=== PATIENT | male | born 1980 | race Caucasian/White ===

== ENCOUNTER 2018-04-04 12:29 | Emergency (ER) | payer OTHER ==
[2018-04-04 12:41] VITALS: BP 145/96
[2018-04-04] MEDS ORDERED: Metoclopramide 10 MG/2 ML SDV IVPUSH ONE (12:53)
[2018-04-04] MEDS ORDERED: HYDROmorphone 1 MG/ML Syringe IVPUSH ONE (12:53)
[2018-04-04] MEDS ORDERED: Bupivacaine 0.5% 10 ML SDV INJECT ONE (12:54)
[2018-04-04] MEDS ORDERED: ceFAZolin 2 GM in Premix Bag 1 BAG IV ONE (12:55)
[2018-04-04] MEDS ORDERED: Diphtheria,Pertussis(Acell),Tetanus Vaccine 0.5 ML SDV IM ONE (12:57)
--- NOTE | 2018-04-04 12:59 | EDM.PDOC ---
ED HPI GENERAL MEDICAL PROBLEM - General Chief Complaint: Upper Extremity Injury/Pain Stated Complaint: HAND INJURY Time Seen by Provider: 04/04/18 12:53 Source of Information: Reports: Patient History Limitations: Reports: No Limitations - History of Present Illness INITIAL COMMENTS - FREE TEXT/NARRATIVE: 37-year-old male presents to the ED for evaluation of injuries to his right hand. 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 Of note he is right-hand dominant. He states a piece of eye drops partially 25 feet and crushed his right distal fingertips particularly involving the third and fourth fingers. Patient is working [place] [facility] at this time. He attended the Patient on [facility] and was sent to the ED by Dr. Couch. Clinically he appears to have open fractures of the distal phalanges of the right third and fourth fingers. He is not sure when his last tetanus toxoid was updated. He denies any other injuries. He has currently 9 out of 10. Onset: Today Onset Date: 04/04/18 Onset Time: 10:30 Duration: Hour(s): Location: Reports: Upper Extremity, Right Quality: Reports: Ache (Right hand involving the distal aspects of the right third and fourth fingers.), Throbbing Severity: Severe Improves with: Reports: None Worsens with: Reports: Other, Movement Context: Reports: Trauma (Crush type injury from a piece of pipe falling on his hand.). 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 Pain Score (Numeric/FACES): 7 - Related Data Allergies Allergy/AdvReac Type Severity Reaction Status Date / Time codeine Allergy Hives Verified 04/04/18 12:41 Home Meds: Home Meds Anti-Inflammatory 1 tab PO BID 04/04/18 [History] Doxycycline [Vibramycin] 100 mg PO BID #24 cap 04/04/18 [Rx] Hydrocodone/Acetaminophen [Vicodin Es 7.5-300 mg Tablet] 1 - 2 each PO Q4H #24 tablet 04/04/18 [Rx] Past Medical History - Past Health History Medical/Surgical History: Denies Medical/Surgical History Musculoskeletal History: Reports: Back Pain, Chronic, Osteoarthritis - Past Surgical History Musculoskeletal Surgical History: Reports: Other (See Below) Other Musculoskeletal Surgeries/Procedures:: MCL/PCL repair Social & Family History - Family History Family Medical History: Noncontributory - Tobacco Use Smoking Status *Q: Current Every Day Smoker Years of Tobacco use: 20 Packs/Tins Daily: 1 - Caffeine Use Caffeine Use: Reports: Coffee, Energy Drinks - Recreational Drug Use Recreational Drug Use: No - Living Situation & Occupation Occupation: Employed Review of Systems - Review of Systems Review Of Systems: See Below Constitutional: Reports: No Symptoms Eyes: Reports: No Symptoms Ears: Reports: No Symptoms Nose: Reports: No Symptoms Mouth/Throat: Reports: No Symptoms Respiratory: Reports: No Symptoms Cardiovascular: Reports: No Symptoms GI/Abdominal: Reports: No Symptoms Genitourinary: Reports: No Symptoms Musculoskeletal: Reports: Back Pain Skin: Reports: No Symptoms Neurological: Reports: No Symptoms Psychiatric: Reports: No Symptoms ED EXAM, GENERAL - Physical Exam Exam: See Below Exam Limited By: No Limitations General Appearance: Alert, WD/WN, Moderate Distress (In obvious pain and discomfort.) Head: Atraumatic, Normocephalic Neck: Normal Inspection, Supple, Non-Tender, Full Range of Motion. No: Lymphadenopathy (L), Lymphadenopathy (R) Respiratory/Chest: No Respiratory Distress, Lungs Clear, Normal Breath Sounds, No Accessory Muscle Use Cardiovascular: Normal Peripheral Pulses, Regular Rate, Rhythm, No Edema, No Gallop, No Murmur, No Rub GI/Abdominal: Normal Bowel Sounds, Soft, Non-Tender, No Organomegaly, No Abnormal Bruit, No Mass, Pelvis Stable Extremities: Other (Examination of his left upper extremity reveals no abnormalities. Examination of the right hand shows obvious deformities to the distal phalanges of the right third and fourth fingers. It appears that the fingernails have been avulsed from the nailbed at their bases with likely fractures of the distal phalanges. He is unable to move the fingers at the DIP joints.) Neurological: Alert ( The second and fifth fingers and thumb appear to be unaffected.), Oriented, CN II-XII Intact, Normal Cognition Psychiatric: Normal Affect, Normal Mood Skin Exam: Warm, Dry, Intact, Normal Color, No Rash ED TRAUMA EXTREMITY PROCEDURES - Laceration/Wound Repair Right Distal Digit - 3rd (Middle) Lac/Wound Length In cm: 2.5 (Stellate laceration that crackles across the dorsal aspect of the third finger to the volar aspect on radial aspect of the finger. Fingernail avulsed from the nail matrix.) Appearance: Subcutaneous, Stellate Distal NVT: Other (Comminuted fracture distal phalanx with complete avulsion of the fingernail from the nailbed.) Local Anesthesia - Bupivicaine (Marcaine): 0.5% Plain (Digital block) Local Anesthetic Volume: 5cc Skin Prep: Saline Exploration/Debridement/Repair: Minimal Debridement, No Foreign Material Found, Wound Margins Revised, Multiple Flaps Aligned Closed With: Sutures Suture Size: 3-0 # of Sutures: 7 Suture Type: Nylon, Interrupted, Running, Other (3 Vicryl 4 sutures placed also through the nailbed to approximate the fracture.) Course - Vital Signs Last Recorded V/S: Last Vital Signs Temp 36.6 C 04/04/18 12:32 Pulse 84 04/04/18 12:32 Resp 18 04/04/18 12:32 BP 145/96 H 04/04/18 12:32 Pulse Ox 99 04/04/18 12:32 - Orders/Labs/Meds Orders: Active Orders 24 hr Category Date Time Status Vaccines to be Administered [RC] PER UNIT ROUTINE Care 04/04/18 12:57 Active Hand Comp Min 3V Rt [CR] Stat Exams 04/04/18 12:54 Taken Meds: Medications Discontinued Medications Generic Name Dose Route Start Last Admin Trade Name Nita PRN Reason Stop Dose Admin Bupivacaine HCl 20 ml 04/04/18 12:54 04/04/18 13:24 Sensorcaine-Mpf 0.5% INJECT 04/04/18 12:55 20 ml ONETIME ONE Administration Diphtheria/Tetanus/Acell Pertussis 0.5 ml 04/04/18 12:57 04/04/18 13:27 Adacel IM 04/04/18 12:58 0.5 ml .ONCE ONE Administration Hydromorphone HCl 1 mg 04/04/18 12:53 04/04/18 13:18 Dilaudid IVPUSH 04/04/18 12:54 1 mg ONETIME ONE Administration Sodium Chloride 1,000 mls @ 125 mls/hr 04/04/18 13:00 04/04/18 13:18 Normal Saline IV 125 mls/hr ASDIRECTED GABRIELLA Administration Cefazolin Sodium/Dextrose 2 gm 50 mls @ 100 mls/hr 04/04/18 12:55 08/29/18 13 :26 / Premix IV 04/04/18 13:24 100 mls/hr ONETIME ONE Administration Metoclopramide HCl 10 mg 04/04/18 12:53 04/04/18 13:24 Reglan IVPUSH 04/04/18 12:54 10 mg ONETIME ONE Administration - Radiology Interpretation Free Text/Narrative:: 37-year-old male presents to the ED with acute injuries to his right hand involving the distal aspects of his third and fourth fingers from a oil rig accident. Type injury to the fingers occurred when a piece of pipe fell from above his head crushing his fingertips. Clinically has open fractures of the distal for allergies of these fingers. The fingernails appear to have been avulsed completely from the nailbed. Tetanus toxoid diphtheria and pertussis will be updated. A digital block will be performed on these fingers using Marcaine 0.5% to provide pain relief. IV will be normal saline at 150 mils per hour. Given Dilaudid 1 mg IV with Reglan 10 mg IV for acute pain relief. So Ancef 2 g IV will be given for suspect open fractures. X-rays of the fingers will be obtained once central block is been performed. - Re-Assessments/Exams Free Text/Narrative Re-Assessment/Exam: 04/04/18 13:32 Digital block performed on his right third and fourth fingers using 0.5% Marcaine. A total of 10 mL was utilized. X-rays reveal often fractures of the distal allergies of the right third and finger which was evident clinically as well. Case will be discussed with on-call orthopedic surgeon Dr. Clemente. 04/04/18 15:40 Dr. Clemente had seen the patient in consultation in the ED and recommended that I perform the repair under digital block which is already been performed. Plan is to just realign the the nailbeds to restructure the bones into approximate position and close up the lacerations which are both ulnar and radial on the third finger and mostly on the ulnar aspect of the fourth finger. This was done under digital block. I also opened up a large blood blister or hematoma on the volar surface of the fourth finger with an 18-gauge needle. Patient will be placed on Vicodin tablets which she's tolerated in the past as Percocet caused him to have numerous side effects. Doxycycline will be placed twice daily for the next 12 days to prevent secondary wound infection. He will be off work for a minimum of 2 weeks before he can return to alternative work duties where he would not have to use his right hand. Unfortunately type of work a does demands use of both hands. He is to be sorted out through occupational health and Dr. Couch who will follow him along in this regard. I will have him follow-up with Dr. Clemente orthopedic surgeon whom he has familiar with in regards to fracture management and make sure that the fractured fingers heal. Initial visit should be in 5 days' time. Departure - Departure Time of Disposition: 15:44 Disposition: Home, Self-Care 01 Condition: Fair Clinical Impression: Finger fracture, right Qualifiers: Encounter type: initial encounter Finger: middle finger Fracture type: open Phalanx: distal Fracture alignment: displaced Qualified Code(s): S62.632B - Displaced fracture of distal phalanx of right middle finger, initial encounter for open fracture Fracture, finger, distal phalanx Qualifiers: Encounter type: initial encounter Finger: ring finger Fracture type: closed Fracture alignment: nondisplaced Laterality: right Qualified Code(s): S62.664A - Nondisplaced fracture of distal phalanx of right ring finger, initial encounter for closed fracture - Discharge Information *PRESCRIPTION DRUG MONITORING PROGRAM REVIEWED*: Not Applicable *COPY OF PRESCRIPTION DRUG MONITORING REPORT IN PATIENT MAYRA: Not Applicable Prescriptions: Doxycycline [Vibramycin] 100 mg PO BID #24 cap Hydrocodone/Acetaminophen [Vicodin Es 7.5-300 mg Tablet] 1 - 2 each PO Q4H #24 tablet Referrals: PCP,Unknown [Primary Care Provider] - Forms: ED Department Discharge, ED Return to Work/School Form Additional Instructions: Evaluation in the emergency him today in regards to blunt force trauma or crush type injuries to the distal aspects of your right fourth and third fingers. This occurred in the workplace this morning at 1030 hrs. X-rays reveal comminuted fractures of the third distal phalanx and a simple fracture of the distal phalanx on the fourth finger. Associated avulsion of the fingernail on the right third finger from the nail matrix. 10 sutures are placed in the dorsal aspect of the right third finger to reapproximate the nail and the underlying fractures. 4 sutures are placed on the dorsal ulnar aspect of your fourth finger to provide wound closure. Initial dressings are to remain in place for the next 3 days. After this the dressings can be removed and then the wounds either soaked in warm water with a bit of Dove soap or gently washed in the shower a few been tolerated. Then topical antibiotic such as bacitracin or Polysporin is to be applied to all wounds and then redressed with bandages as we discussed. Then splints need to be placed to maintain position of the fractured fragments and splints taped in place. Just initial follow-up with Dr. Clemente--orthopedic surgeon in 5 days time. Please call [phone] to arrange follow- up appointment. Subsequent follow-up should be done with Dr. Couch at the occupational health clinic middle of next week as well and he can follow you along and determine through your workplace when you might be able to return to work or if there are alternative work duties available to you. Treatment at home is to elevate her hand ideally at heart level for the next 3-5 days to prevent extra swelling and reduce pain. Doxycycline 100 mg tablet twice daily for the next 12 days to prevent secondary wound infection. Vicodin tablets one or 2 every 4-6 hours as needed for pain relief for the next 3-5 days and then we 'll try and switch to Motrin 600 mg every 6 hours as needed. - My Orders Last 24 Hours: My Active Orders 04/04/18 12:54 Hand Comp Min 3V Rt [CR] Stat 04/04/18 12:57 Vaccines to be Administered [RC] PER UNIT ROUTINE - Assessment/Plan Last 24 Hours: My Active Orders 04/04/18 12:54 Hand Comp Min 3V Rt [CR] Stat 04/04/18 12:57 Vaccines to be Administered [RC] PER UNIT ROUTINE ED LACERATION PROCEDURES - Laceration/Wound Repair Right Distal Digit - 3rd (Middle) Lac/wound length in cm: 1.5 Appearance: Stellate (Left distal fourth finger), Clean Local Anesthesia - Bupivicaine (Marcaine): 0.5% Plain Local Anesthetic Volume: 5cc Skin Prep: Saline Exploration/Debridement/Repair: Wound Explored, Minimal Debridement Closed with: Sutures Suture Size: 4-0 # of Sutures: 4 Suture Type: Nylon, Interrupted, Simple
[2018-04-04] MEDS ORDERED: Sodium Chloride 0.9% 1,000 ML IV SCH (13:00)
== END 2018-04-04 16:09 | disposition home or self-care (01) ==
LOC: JD.ED 12:29
DX: S62.632B Displaced fracture of distal phalanx of right middle finger, initial encounter for open fracture (principal); S62.664A Nondisplaced fracture of distal phalanx of right ring finger, initial encounter for closed fracture; Z23 Encounter for immunization; W20.8XXA Other cause of strike by thrown, projected or falling object, initial encounter; Z88.5 Allergy status to narcotic agent; F17.210 Nicotine dependence, cigarettes, uncomplicated
CPT/HCPCS: 10140; 11760; 73130; 90471; 90715; 96361; 96365; 96375; 99284; J0690; J1170; J2765; J3490; J7040; 12001

== ENCOUNTER 2018-12-19 03:35 | Emergency (ER) | payer OTHER ==
[2018-12-19] MEDS ORDERED: Acetaminophen/HYDROcodone 325-5 MG Tab PO ONE (04:02)
[2018-12-19] MEDS ORDERED: methylPREDNISolone Sodium Succinate 125 MG/2 ML SDV IM ONE (04:02)
--- NOTE | 2018-12-19 04:08 | EDM.PDOC ---
ED HPI GENERAL MEDICAL PROBLEM - General Chief Complaint: Back Pain or Injury Stated Complaint: BACK PAIN Time Seen by Provider: 12/19/18 03:49 Source of Information: Reports: Patient, RN Notes Reviewed - History of Present Illness INITIAL COMMENTS - FREE TEXT/NARRATIVE: 38-year-old male comes in with right low back pain that has been worse for the past month or so he has had this off and on for about the past 4 years. See provider a couple of weeks ago was on a course of steroid medicine and that did help but now the pain is gotten much worse. Starts in the right low back and does radiate down the posterior right thigh to about the knee level. The pain is worse when sitting and also more bothersome at night. He has had difficulty sleeping this morning and presents now to the ED because of the severity of the discomfort and difficulty sleeping. 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 He has been taken Aleve or Naprosyn for the discomfort but not getting good relief at this time. Right Lower Back Pain Score (Numeric/FACES): 10 - Related Data Allergies Allergy/AdvReac Type Severity Reaction Status Date / Time codeine Allergy Hives Verified 12/19/18 03:40 Home Meds: Home Meds Acetaminophen/HYDROcodone [[place] 325-5 MG] 1 tab PO Q4H PRN #14 tablet 12/19/18 [Rx] Ibuprofen 400 mg PO ONCALL PRN 12/19/18 [History] predniSONE [Prednisone] 50 mg PO DAILY #7 tablet 12/19/18 [Rx] Past Medical History - Past Health History Medical/Surgical History: Denies Medical/Surgical History Musculoskeletal History: Reports: Back Pain, Chronic, Osteoarthritis - Past Surgical History Musculoskeletal Surgical History: Reports: Other (See Below) Other Musculoskeletal Surgeries/Procedures:: MCL/PCL repair Social & Family History - Family History Family Medical History: Noncontributory - Tobacco Use Smoking Status *Q: Current Every Day Smoker Years of Tobacco use: 20 Packs/Tins Daily: 1 - Caffeine Use Caffeine Use: Reports: Coffee, Energy Drinks - Alcohol Use Days Per Week of Alcohol Use: 2 Number of Drinks Per Day: 3 Total Drinks Per Week: 6 - Recreational Drug Use Recreational Drug Use: No - Living Situation & Occupation Occupation: Employed ED ROS GENERAL - Review of Systems Review Of Systems: See Below Constitutional: Denies: Fever, Chills, Diaphoresis HEENT: Reports: No Symptoms Respiratory: Denies: Shortness of Breath Cardiovascular: Denies: Chest Pain GI/Abdominal: Denies: Abdominal Pain, Nausea, Vomiting Musculoskeletal: Reports: Back Pain, Leg Pain (Right low back) Neurological: Denies: Numbness, Tingling, Weakness ED EXAM,LOWER BACK PAIN/INJURY - Physical Exam Exam: See Below General Appearance: Alert, Moderate Distress Head: Atraumatic Neck: Supple Respiratory/Chest: No Respiratory Distress Back Exam: Other (Mild tenderness right low back) Extremities: Normal Inspection Neurological: Alert, No Motor/Sensory Deficits, Straight Leg Raise (R) (Pain with straight leg raising on the right) Skin Exam: Warm, Dry, Normal Color Course - Vital Signs Last Recorded V/S: Last Vital Signs Temp 97.5 F 12/19/18 03:41 Pulse 87 12/19/18 03:41 Resp 18 12/19/18 03:41 BP 128/87 12/19/18 03:41 Pulse Ox 100 12/19/18 03:41 - Orders/Labs/Meds Meds: Medications Discontinued Medications Generic Name Dose Route Start Last Admin Trade Name Freq PRN Reason Stop Dose Admin Hydrocodone Bitart/Acetaminophen 1 tab 12/19/18 04:02 [place] 325-5 Mg PO 12/19/18 04:03 ONETIME ONE Methylprednisolone Sodium Succinate 125 mg 12/19/18 04:02 12/19/18 04:08 Solu-Medrol IM 12/19/18 04:03 125 mg ONETIME ONE Administration Departure - Departure Time of Disposition: 04:15 Disposition: Home, Self-Care 01 Clinical Impression: Sciatica Qualifiers: Laterality: right Qualified Code(s): M54.31 - Sciatica, right side - Discharge Information Prescriptions: Acetaminophen/HYDROcodone [[place] 325-5 MG] 1 tab PO Q4H PRN #14 tablet PRN Reason: Pain predniSONE [Prednisone] 50 mg PO DAILY #7 tablet Referrals: Deedee Roberto NP [Primary Care Provider] - Forms: ED Department Discharge, ED Return to Work/School Form Additional Instructions: Rest back, alternate ice and heat as needed, continue Naprosyn or Aleve 2-3 times daily as needed, prednisone 50 mg daily with your next dose later this morning, you may take Tylenol up to 3 times daily in addition to the Naprosyn or hydrocodone if needed for severe pain. Do not drive or work when taking hydrocodone, do not take Tylenol and hydrocodone at the same time, see Deedee at the clinic tomorrow for follow-up evaluation as planned.
[2018-12-19 04:15] VITALS: BP 128/87
== END 2018-12-19 04:24 | disposition home or self-care (01) ==
LOC: JD.ED 03:35
DX: M54.41 Lumbago with sciatica, right side (principal); F17.210 Nicotine dependence, cigarettes, uncomplicated; Z88.5 Allergy status to narcotic agent; Z79.899 Other long term (current) drug therapy
CPT/HCPCS: 96372; 99283; J2930

== ENCOUNTER 2019-01-29 17:54 | Emergency (ER) | payer OTHER ==
[2019-01-29 18:14] VITALS: BP 119/76
== END 2019-01-29 19:00 | disposition left against medical advice (07) ==
LOC: JD.ED 17:54
DX: Z53.21 Procedure and treatment not carried out due to patient leaving prior to being seen by health care provider (principal)

== ENCOUNTER 2021-02-23 01:10 | Emergency (ER) | payer OTHER, BC ==
[2021-02-23 01:37] VITALS: PULSE 83
[2021-02-23] MEDS ORDERED: Sodium Chloride 0.9% 1,000 ML IV SCH (01:45)
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
[2021-02-23 03:46] VITALS: BP 125/75
--- NOTE | 2021-02-23 08:09 | CT ---
CT cervical spine Technique: Multiple axial sections were obtained from above C1 inferiorly to the lower T2 level. Reconstructed coronal and sagittal images were obtained. Comparison: No prior cervical spine imaging is available. Findings: Mild scattered disc space narrowing is seen at C3-4 through C7-T1. Slight posterior osteophytes are noted at C4-5, C5-6, C6-7 and C7-T1. Mastoid sinuses are clear as seen. Moderate neural foraminal stenosis is noted at C3-4 on the right side. Mild left-sided neural foraminal stenosis is also noted at C3-4. Moderate right-sided neural foraminal stenosis noted at C4-5. C5-6 level shows mild right-sided neural foraminal stenosis. Other neural foramina are felt to be fairly well patent. Visualized lung bases show nothing acute. No acute fracture or subluxation is seen. Impression: 1. Mild diffuse degenerative change as noted above. 2. Nothing acute is appreciated on CT study of the cervical spine. Diagnostic code #2 I agree with preliminary report from [facility], finalized on 02/23/21, 3:21 AM CDT, code 1
--- NOTE | 2021-02-23 08:11 | CT ---
Head CT Technique: Multiple axial sections through the brain were obtained. Intravenous contrast was not utilized. Reconstructed coronal and sagittal images were obtained. Comparison: No prior intracranial imaging is available. Findings: Ventricles along with basal cisterns and sulci over the convexities are within normal limits for the patient's age. Mild soft tissue swelling is seen within the left frontal scalp. No abnormal parenchymal densities are seen. No evidence of intracranial hemorrhage is seen. No midline shift or mass-effect is appreciated. Bone window settings were reviewed. Minimal mucosal thickening is seen within the posterior left ethmoid sinus. Other visualized paranasal sinuses show nothing acute. Visualized mastoid sinuses also show nothing acute. No acute calvarial abnormality is appreciated. Impression: 1. Mild soft tissue swelling is noted within the frontal left-sided scalp. 2. No acute intracranial abnormality is identified. Diagnostic code #2 I agree with preliminary report from [facility], finalized on 02/23/21, 3:17 AM CDT, code 1
== END 2021-02-23 03:44 | disposition home or self-care (01) ==
LOC: JD.ED 01:10
DX: S00.83XA Contusion of other part of head, initial encounter (principal); S70.01XA Contusion of right hip, initial encounter; S50.01XA Contusion of right elbow, initial encounter; S70.11XA Contusion of right thigh, initial encounter; F10.129 Alcohol abuse with intoxication, unspecified; Y90.5 Blood alcohol level of 100-119 mg/100 ml; Z88.5 Allergy status to narcotic agent; Z72.0 Tobacco use; V86.99XA Unspecified occupant of other special all-terrain or other off-road motor vehicle injured in nontraffic accident, initial encounter
CPT/HCPCS: 36415; 70450; 70450-26; 72125; 72125-26; 80053; 80307; 85007; 85027; 99283; 99284-25

== ENCOUNTER 2023-02-20 22:19 | Emergency (ER) | payer OTHER ==
[2023-02-20 23:29] LABS: BASOPHILS ABSOLUTE AUTO 0.05 K/mm3 (0.01-0.08); BASOPHILS PERCENT AUTO 0.5 % (0.1-1.2); EOSINOPHILS ABSOLUTE AUTO 0.43 K/mm3 (0.04-0.54); EOSINOPHILS PERCENT AUTO 4.1 (0.8-7.0); HEMATOCRIT 44.5 % (40.1-51.0); HEMOGLOBIN 15.6 gm/dl (13.7-17.5); IMMATURE GRAN ABSOLUTE AUTO 0.04 K/mm3 (0.00-0.10); IMMATURE GRAN PERCENT AUTO 0.4 % (<=1.0); LYMPHOCYTES ABSOLUTE AUTO 2.87 K/mm3 (1.32-3.57); LYMPHOCYTES PERCENT AUTO 27.4 % (21.8-53.1); MEAN CORPUSCULAR HEMOGLOBIN 30.6 pg (25.7-32.2); MEAN CORPUSCULAR HGB CONC 35.1 g/dl (32.2-35.5); MEAN CORPUSCULAR VOLUME 87.3 fl (79.0-92.2); MEAN PLATELET VOLUME 9.4 fl (9.4-12.3); MONOCYTES ABSOLUTE AUTO 1.15 K/mm3 (0.30-0.82); NEUTROPHILS ABSOLUTE AUTO 5.92 K/mm3 (1.78-5.38); NEUTROPHILS PERCENT AUTO 56.6 % (34.0-67.9); PLATELET COUNT,PLT 384 K/mm3 (163-337); WHITE BLOOD CELL COUNT,WBC 10.46 K/mm3 (4.23-9.07)
[2023-02-20 23:34] LABS: APPEARANCE,URINE CLEAR (Clear); BILIRUBIN,URINE NEGATIVE (Negative); COLOR,URINE YELLOW (Yellow); GLUCOSE,URINE NEGATIVE (Negative); KETONES,URINE TRACE (Negative); LEUKOCYTE ESTERASE,URINE NEGATIVE (Negative); NITRITE,URINE NEGATIVE (Negative); OCCULT BLOOD,URINE TRACE-LYSED (Negative); PROTEIN,URINE NEGATIVE (Negative); UROBILINOGEN,URINE 0.2 (0.2-1.0)
[2023-02-20 23:41] LABS: BACTERIA,URINE FEW /hpf (FEW); MUCUS,URINE MODERATE /hpf (FEW); SQUAMOUS EPITHELIAL CELLS,UR 0-5 /hpf (0-5); WBC,URINE 0-5 /hpf (0-5)
[2023-02-20 23:45] LABS: BARBITURATE SCREEN,URINE NEGATIVE (CUTOFF=200); BENZODIAZEPINES SCREEN,URINE NEGATIVE (CUTOFF=150); BUPRENORPHINE SCREEN,URINE NEGATIVE (CUTOFF=10); METHADONE SCREEN, URINE NEGATIVE (CUT0FF=200); METHAMPHETAMINES SCREEN, URINE NEGATIVE (CUTOFF=500); OXYCODONE SCREEN,URINE NEGATIVE (CUT0FF=100); PROPOXYPHENE SCREEN,URINE NEGATIVE (CUTOFF=300); THC SCREEN,URINE 20 NG/ML NEGATIVE (CUTOFF=50)
[2023-02-20 23:52] LABS: AMPHETAMINES SCREEN, URINE NEGATIVE (CUTOFF=500)
[2023-02-20 23:52] LABS: A/G RATIO 1.1 (1-2); ALANINE AMINOTRANSFERASE,ALT 52 U/L (16-63); ALBUMIN 3.5 g/dl (3.4-5.0); ALKALINE PHOSPHATASE 111 U/L (46-116); ANION GAP 11.1 (5-15); ASPARTATE AMNIOTRANSFERASE,AST 24 U/L (15-37); BILIRUBIN TOTAL 0.3 mg/dL (0.2-1.0); BLOOD UREA NITROGEN,BUN 19 mg/dL (7-18); C-REACTIVE PROTEIN <0.2 mg/dL (<1.0); CALCIUM 8.8 mg/dL (8.5-10.1); CARBON DIOXIDE,CO2 28 mEq/L (21-32); CHLORIDE,CL 105 mEq/L (98-107); EST CRCL DRUG DOSING (CG) 108.75 mL/min; ESTIMATED GFR 96 mL/min (>60); PROTEIN TOTAL,TP 6.8 g/dl (6.4-8.2); SODIUM,NA 140 mEq/L (136-145); TROPONIN I HIGH SENSITIVITY 5 pg/mL (<=76)
[2023-02-20 23:55] LABS: GLUCOSE RANDOM 121 mg/dL (70-99); POTASSIUM,K 4.1 mEq/L (3.5-5.1)
[2023-02-21 01:37] VITALS: BP 127/75; PULSE 90
== END 2023-02-21 01:00 | disposition home or self-care (01) ==
LOC: JD.ED 22:19
DX: R55 Syncope and collapse (principal); F17.210 Nicotine dependence, cigarettes, uncomplicated; Z88.5 Allergy status to narcotic agent
CPT/HCPCS: 36415; 80053; 80306; 81001; 84484; 85025; 85652; 86140; 93005; 93010; 93225; 93226; 99283; 99284